=== PATIENT | male | born 1940 | race Hispanic/Latino ===

== ENCOUNTER 2018-10-29 05:05 | Observation (INO) | payer MEDICARE ==
[2018-10-28 11:12] LABS: HEMATOCRIT 41.9 % (38.2-49.6); HEMOGLOBIN 13.5 g/dL (14.0-18.0)
[~2018-10-29] VITALS: Ht 157.5 cm; Wt 72.1 kg
[~2018-10-29 05:05] MED LIST: ACETAMINOPHEN325 M1 PO; AMLODIPINE BESYL5 MG PO; BENICAR HCT 401 EACH PO; LORTAB 7.51 EA PO; Z.0.ASPIRIN325 MG PO; Z.0.LEVOTHYROXINE25 PO; Z.1.DIOVAN HCT 3201 PO
[2018-10-29] MEDS ORDERED: CELECOXIB 200 MG CAP ONE (06:42)
[2018-10-29] MEDS ORDERED: VANCOMYCIN HCL 1,000 MG ONE (06:42)
[2018-10-29] MEDS ORDERED: SODIUM CHLORIDE 0.9% 500ML 500 ML ONE (06:42)
[2018-10-29] MEDS ORDERED: DEXAMETHASONE SOD PHOS 10 MG/1 ML VIAL ONE (06:42)
[2018-10-29] MEDS ORDERED: CEFAZOLIN SOD 1 GM/NS 50ML 100 ML IV ONE (06:43)
[2018-10-29] MEDS ORDERED: GABAPENTIN 300 MG CAP ONE (06:43)
[2018-10-29] MEDS ORDERED: BACITRACIN 50,000 UNIT VIAL ONE (06:43)
[2018-10-29] MEDS ORDERED: TRANEXAMIC ACID 1,000 MG/10 ML ML ONE (06:43)
[2018-10-29] MEDS ORDERED: ROPIVACAINE 246.25 MG, EPINEPHRINE HCL 1:1000 1ML 0.5 MG, CLONIDINE HCL 0.08 MG, KETORO... INJ ONE ×5 (08:30)
[2018-10-29] MEDS ORDERED: CELECOXIB 100 MG CAP PO SCH (09:00)
[2018-10-29] MEDS ORDERED: ONDANSETRON HCL INJ 2MG/ML 2ML 2 MG/ML VIAL IV PRN (09:00)
[2018-10-29] MEDS ORDERED: DIPHENHYDRAMINE HCL INJ 50 MG/ML VIAL IM/IV PRN (09:00)
[2018-10-29] MEDS ORDERED: HYDROCODONE/APAP 5MG-325MG TAB PO PRN (09:00)
[2018-10-29] MEDS ORDERED: DOCUSATE SODIUM 100 MG CAP PO PRN (09:00)
[2018-10-29] MEDS ORDERED: ACETAMINOPHEN 650 MG SUPP PR PRN (09:00)
[2018-10-29] MEDS ORDERED: PROMETHAZINE HCL (IM) 25 MG/ML VIAL IM PRN (09:00)
[2018-10-29] MEDS ORDERED: KETOROLAC TROMETHAMINE 30 MG/ML VIAL IV PRN (09:00)
[2018-10-29] MEDS ORDERED: HYDROCODONE/APAP 7.5MG-325MG 1 EA TAB PO PRN (09:00)
--- NOTE | 2018-10-29 09:40 | Diagnostic Imaging Report ---
EXAM: KNEE LEFT 1-2 VIEWS DATE: 10/29/2018 8:52 AM INDICATION: Postop COMPARISON: None FINDINGS: There are postsurgical changes from recent left knee arthroplasty. Hardware appears intact and in anatomic alignment. There is no evidence for acute fracture or dislocation. No focal lytic or blastic abnormalities are identified. Soft tissue gas is noted, likely relating to the recent surgical procedure. Overlying skin tabitha noted. No radiopaque foreign body is appreciated. IMPRESSION: Expected post surgical changes from recent left knee arthroplasty. Signed by: Dr. Yon Branham MD on 10/29/2018 9:36 AM
--- NOTE | 2018-10-29 11:45 | NUR ---
PT ARRIVED TO ROOM RESP EVEN AND UNLABORED AT THIS TIME NO DISTRESS NOTED AT THIS TIME, PT HAS NO C/O PAIN, PT ABLE TO MAKE NEEDS KNOWN, LEFT LEG WRAPPED IN RAYSA WRAP, CLEAN DRY AND INTACT, PT ORIENTED TO ROOM AND CALL LIGHT, BED IN LOWEST POSITION, BED RAILS UP X2.
[2018-10-29] MEDS: ACETAMINOPHEN 1000 MG/100 ML IV SCH ×2 (12:00→18:28)
[2018-10-29 12:08] VITALS: BP 116/58
[2018-10-29 12:17] VITALS: BP 116/58
--- NOTE | 2018-10-29 13:14 | Operative Report ---
DATE OF PROCEDURE: 10/29/2018 SURGEON: Luis Alberto Ames MD DIRECTOR WEB: Davin Turpin, Certified PA. PREOPERATIVE DIAGNOSIS: Osteoarthritis left knee with retained hardware. POSTOPERATIVE DIAGNOSIS: Osteoarthritis left knee with retained hardware. PROCEDURE: Left total knee arthroplasty * added complexity due to previously operated knee. INDICATIONS: The patient is an 78-year-old [place] male, who has end-stage arthritis of his left knee. He is status post a high tibial osteotomy years ago. He has had progressive pain with ambulation. The treatment options have been discussed. He has been through a right knee replacement and he is happy with his progress and outcome. He would now like to proceed with a left total knee replacement. The risks and benefits were explained. The possibility of hardware removal was explained. He stated he understood and wished to proceed. PROCEDURE IN DETAIL: The patient was brought to the operating room and placed under general anesthetic. He received prophylactic antibiotics, a regional block, and tranexamic acid in the holding area. His left lower extremity was prepped and draped in a sterile manner. A preoperative time-out was performed. The extremity was exsanguinated and a proximal tourniquet was inflated to 300 mmHg. An anterior incision cheat was made. The incision was cheated to the lateral aspect due to the previous high tibial osteotomy incision. A medial parapatellar arthrotomy was performed. Clear synovial fluid was removed from the joint. Abundant synovitis was encountered. Soft tissue releases were carefully performed to bring the knee up into flexion with the patella everted. Complete loss of articular cartilage down to polished subchondral bone was noted in the medial compartment. Meniscal remnants and marginal osteophytes were removed. The knee was chronically ACL deficient. An extramedullary cutting guide was used to resect the tip of proximal tibia. The cut was referenced off the lateral compartment. A [employer] knee system was used throughout the case. The tibial base plate was noted to be a size number 5. We impacted the central fin punch. I could just see one of the spikes of the lateral staple after impacting the tibial punch. I palpated the proximal lateral aspect of the tibia. The previous tibial staple was covered in bone. I felt that the risk of iatrogenic fracture and unnecessary destruction of the soft tissues did not warrant removing the staple, considering that the tibial base plate could be completely seated. Attention was then directed towards the distal femur. An intramedullary cutting guide was used to resect the distal femur in 6 degrees of valgus and rotation, referencing off a combination of landmarks including Whitesides line, the epicondylar axis and the posterior condyles. The femoral component was also a size number 5. A trial reduction was performed. A 9 mm ultracongruent tibial insert provided appropriate soft tissue balancing. Attention was directed towards the patella. This was resurfaced with a 32 mm x 7.5 mm patellar button. The thickness was checked before and after resurfacing and it was right around 23 mm. Patellar tracking was noted to be concentric. The trial implants were then all removed. A 100 mL premixed pericapsular REINALDO injection was placed into the surrounding soft tissue. The knee was thoroughly irrigated with a shower tip pulsatile lavage. All of the bone cuts had been irrigated with a diluted spray mixture of polymyxin and vancomycin spray. The components were cemented into place using a single mix of Palacos cement preloaded with antibiotics. Care was taken to remove all extravasated cement. The wound was further irrigated while the cement cured. The arthrotomy was then closed after sprinkling 500 mg of vancomycin powder into the joint. The knee was put through flexion and extension to ensure a secure closure of the arthrotomy. The skin was carefully closed with subcuticular Vicryl and tabitha. A sterile bandage was applied. The patient was extubated and transported to the recovery room in stable condition. Luis Alberto Ames MD DR/YOLA /[id number]
[2018-10-29] MEDS: CEFAZOLIN SOD 1 GM/NS 50ML 50 ML IV SCH ×2 (14:00→22:04)
--- NOTE | 2018-10-29 14:10 | NUR ---
Visit made by the Spiritual Care Department Pastoral Visitor, Brenda Culver. PV provided pastoral presence, prayer, hospitality, and supportive listening. Pastoral Visitor informed pt/family of the scope of [facility] and availability. MESFIN IYER Vascular Radiologist Spiritual Care Department O: [phone] Pager: [phone] ([phone] number calling from)
--- NOTE | 2018-10-29 15:08 | NUR ---
DR APARICIO OFFICE PREARRANGED FOLLOWING DISCHARGE PLAN OF: HOME HEALTH WITH HOME CARE PROVIDERS CONFIRMED WITH YADY JESSIE [phone] SPOKE WITH DAUGHTER ALONZO MCCLAIN [phone] WHOM STATES PT HAS WALKER WITH WHEELS AND 3 IN 1 FROM LAST SURGERY STILL AND IS DECLINING, CALLED AND SPOKE WITH ANÍBAL AT [facility] [employer] [phone] AND LET KNOW SHE ALREADY HAS, DR DAVISON DC THE CPM HERE AT HOSPITAL, EMAILED DR DAVISON OFFICE TO DETERMINE IF WANTS CANCELLED AT HOME, NOTIFIED ANÍBAL OF THE DC HERE SHE WILL CALL DAUGHTER TO DETERMINE IF THE CPM IS NEEDED AT HOME, CURRENTLY PT HAS AN IMMOBILIZER. Addendum: 10/29/18 at 1519 by Jennifer Perkins CM ENTERED IN ERROR WRONG PT
--- NOTE | 2018-10-29 15:20 | NUR ---
DR APARICIO OFFICE PREARRANGED FOLLOWING DISCHARGE PLAN OF: HOME HEALTH WITH [facility] CONFIRMED WITH ANIQUIA [phone] SHE DID NOT HAVE ORDERS SO FAXED TO [phone], SPOKE WITH HER TO CONFIRM PATIENT ORDER, RECEIPT OF DEMOGRAPHICS AND DAUGHTERS CONTACT INFORMATION. KARENA JAVED [phone] DME 3 IN ONE COMMODE AND CPM. PROVIDED BY [email or web address] [phone] ISHAN. I PROVIDED ROLLING WALKER WITH WHEELS, OBTAINED SIGNATURES AND JESS WITH ORDER, FACESHEET AND GREEN SHEET TO PACU
[2018-10-29] MEDS: ASPIRIN 325 MG TAB PO SCH (16:53)
[2018-10-29] MEDS: CELECOXIB 200 MG CAP PO SCH (16:53)
[2018-10-29] MEDS: ACETAMINOPHEN 325 MG TAB PO SCH (16:54)
[2018-10-29 17:05] VITALS: BP 111/56
[2018-10-29] MEDS: CALCIUM CARBONATE 500 MG CHEWABLE TABS PO PRN (17:36)
[2018-10-29] MEDS: SODIUM CHLORIDE 0.9% 1000ML 1,000 ML IV SCH (18:15)
[2018-10-29] MEDS ORDERED: ROPIVACAINE 0.5% 5 MG/ML 30 ML SDV ONE (18:21)
[2018-10-29] MEDS ORDERED: FENTANYL CITRATE/PF 100MCG/2 ML INJ ONE (18:30)
--- NOTE | 2018-10-29 19:12 | NUR ---
WALKING ROUNDS PERFORMED, RECEIVED PT LAYING SEMI FOWLERS IN BED, AAOX3, RR EVEN AND NON-LABORED, ON ROOM AIR. NO S/SX OF DISTRESS NOTED. (L) LEG WRAPPED IN RAYSA WRAP. LEFT PT LAYING SEMI FOWLERS IN BED, BED IN LOW LOCKED POSITION, SIDE RAILS UPX2, CALL LIGHT AND PHONE WITHIN REACH.
[2018-10-29] MEDS ORDERED: ONDANSETRON HCL INJ 2MG/ML 2ML 2 MG/ML VIAL ONE (19:14)
[2018-10-29] MEDS ORDERED: LIDOCAINE HCL 2% LOCAL INJ 5 ML SDV VIAL INJ ONE (19:14)
[2018-10-29] MEDS ORDERED: PROPOFOL IV EMULSION 10 MG/ML 20 ML VIAL ONE (19:14)
[2018-10-29] MEDS ORDERED: EPHEDRINE SULFATE INJ 50 MG/10 ML SYR ONE (19:14)
[2018-10-29] MEDS ORDERED: ACETAMINOPHEN 1000 MG/100 ML IV ONE (19:14)
[2018-10-29] MEDS ORDERED: GLYCOPYRROLATE INJ 1MG/ 5 ML SYR ONE (19:14)
[2018-10-29] MEDS ORDERED: SEVOFLURANE INHAL SOLN 250 ML PEN BTL ONE (19:14)
--- NOTE | 2018-10-29 19:15 | NUR ---
report given to oncoming nurse, pt stable.
[2018-10-29 20:00] VITALS: BP 111/60
[2018-10-29] MEDS ORDERED: ZOLPIDEM TARTRATE 5 MG TAB PO PRN (21:00)
[2018-10-29 21:46] VITALS: BP 111/60
[2018-10-30] VITALS: BP 113/58
[2018-10-30] MEDS: CALCIUM CARBONATE 500 MG CHEWABLE TABS PO PRN (00:10)
[2018-10-30] MEDS: ACETAMINOPHEN 1000 MG/100 ML IV SCH ×2 (00:10→05:25)
[2018-10-30 04:00] VITALS: BP 112/59
[2018-10-30] MEDS: SODIUM CHLORIDE 0.9% 1000ML 1,000 ML IV SCH (04:52)
[2018-10-30 05:24] LABS: HEMATOCRIT 32.9 % (38.2-49.6); HEMOGLOBIN 10.8 g/dL (14.0-18.0)
--- NOTE | 2018-10-30 05:29 | Consultation ---
DATE OF CONSULTATION: REASON FOR CONSULTATION: Postop medical management. HISTORY OF PRESENT ILLNESS: The patient is an 78-year-old male, status post left total knee arthroplasty for end-stage osteoarthritis. He is doing very well postoperatively with minimal pain in the left knee. Denies any fevers, chills, nausea, vomiting, headache, shortness of breath, or dizziness on review of systems. PAST MEDICAL HISTORY: Hypertension and hypothyroidism. MEDICATIONS: See MAR. ALLERGIES: NONE. SOCIAL HISTORY: Nonsmoker, nondrinker. FAMILY HISTORY: Noncontributory. PHYSICAL EXAMINATION: VITAL SIGNS: Temperature is 98.5, pulse 52, blood pressure 130/58, and sats 96% on room air. GENERAL: He is in no apparent distress. NECK: Supple. LUNGS: Clear to auscultation bilaterally. CARDIOVASCULAR: Regular rate and rhythm. ABDOMEN: Good bowel sounds. Soft, nontender. EXTREMITIES: No clubbing or cyanosis. Left knee is bandaged with no seepage. NEUROLOGICAL: Nonfocal. ASSESSMENT AND PLAN: 1. Left knee pain. Continue with postoperative care and physical therapy. 2. Anemia. Check a CBC. 3. Hypertension. Continue with his home medication and monitor his blood pressure. 4. Hypothyroidism. Continue with his home medications. Please see hospital chart for full details. MD JC Thomas/YOLA /[id number]
[2018-10-30] MEDS: CEFAZOLIN SOD 1 GM/NS 50ML 50 ML IV SCH (05:42)
--- NOTE | 2018-10-30 05:43 | NUR ---
REMOVED RAYSA WRAP FROM (L) LEG, AQUACEL DRESSING IN PLACE COVERING (L) ANTERIOR KNEE INCISION, DRESSING IS CDI. APPLIED LARGE MARCIA HOSE TO (L) LEG.
[2018-10-30] MEDS ORDERED: LEVOTHYROXINE SODIUM 25 MCG TABLET PO SCH (06:00)
--- NOTE | 2018-10-30 07:05 | NUR ---
PT RESTING IN BED AA0X3 PT IS NEPALI SPEAKING IS ON CPM MACHINE AT THIS TIME TOLERATING WELL LEFT KNEE DRESSING IS CLEAN AND DRY BILATERAL STOCKINGS PRESENT AND FOOT PUMPS IV IS DRY AND INTACT WILL CONTINUE TO MONITOR PT CLOSELY SIDE RAILSX2, BED WHEELS LOCKED, CALL LIGHT IS WITHIN EASY REACH, INSTRUCTED TO CALL FOR ASSISTANCE IF NEEDED
[2018-10-30 07:47] VITALS: BP 119/57
[2018-10-30] MEDS: ASPIRIN 325 MG TAB PO SCH (08:35)
[2018-10-30 08:36] VITALS: BP 119/57
[2018-10-30] MEDS: CELECOXIB 200 MG CAP PO SCH (08:36)
[2018-10-30] MEDS: ACETAMINOPHEN 325 MG TAB PO SCH (08:36)
[2018-10-30] MEDS ORDERED: HYDROCHLOROTHIAZIDE 25 MG TAB PO SCH (09:00)
[2018-10-30] MEDS ORDERED: OLMESARTAN 20 MG TAB PO SCH (09:00)
[2018-10-30] MEDS ORDERED: ONDANSETRON HCL 4 MG ORAL DISINTEGRATING TAB PO PRN (09:00)
[2018-10-30] MEDS ORDERED: ACETAMINOPHEN 1000 MG/100 ML IV PRN (09:00)
[2018-10-30] MEDS ORDERED: AMLODIPINE BESYLATE 5 MG TAB PO SCH (09:00)
[2018-10-30 11:47] VITALS: BP 125/58
--- NOTE | 2018-10-30 12:20 | NUR ---
DISCHARGE INSTRUCTIONS PT VERBALIZED UNDERSTANDING IV DC PRESSURE DRESSING APPLIED AND TAPED PT IS READY FOR DC AT THIS TIME
--- NOTE | 2018-10-30 12:31 | NUR ---
PT OFF UNIT TO HOME AT THIS TIME
== END 2018-10-30 12:31 | disposition home health service (06) ==
LOC: OR 05:05 → PACU V 08:54 → MED/SURG 11:30
PROVIDERS: ADMIT Specialist; ATTEND Specialist
DX: M17.0 Bilateral primary osteoarthritis of knee (principal); I10 Essential (primary) hypertension; E03.9 Hypothyroidism, unspecified; Z96.651 Presence of right artificial knee joint
CPT/HCPCS: 20680; 27447; 36415 ×2; 73560; 85014 ×2; 85018 ×2; 86850; 86900; 86920; 97116 ×2; 97139; 97161; 97530 ×2; C1713 ×3; G0378 ×2; J0131 ×2; J0171; J0690 ×2; J1100; J1885; J2001; J2405; J2704; J2795; J3010; J3370; J3490; J7040

== ENCOUNTER 2021-08-26 09:53 | Inpatient (IN) | payer MEDICARE ==
[~2021-08-26] VITALS: Ht 162.6 cm; Wt 70.8 kg
[2021-08-26 10:42] LABS: BASOPHILS # (AUTO) 0.1 (0.0-0.1); BASOPHILS % 0.6 % (0.0-1.0); EOSINOPHILS # (AUTO) 0.2 (0.0-0.4); HEMATOCRIT 36.1 % (38.2-49.6); LYMPHOCYTES # (AUTO) 0.8 (1.0-3.2); LYMPHOCYTES % 9.3 % (18.0-39.1); MEAN CORPUSCULAR HEMOGLOBIN 30.3 pg (28-32); MEAN CORPUSCULAR HGB CONC 33.2 g/dL (31-35); MEAN CORPUSCULAR VOLUME 91.2 fL (81-99); MONOCYTES # (AUTO) 0.5 (0.2-0.8); MONOCYTES % 6.2 % (4.4-11.3); NEUTROPHILS # (AUTO) 6.5 (2.1-6.9); NEUTROPHILS % 80.3 % (38.7-80.0); PLATELET COUNT 327 x10e3/uL (140-360); RED BLOOD COUNT 3.96 x10e6/uL (4.3-5.7); RED CELL DISTRIBUTION WIDTH 12.6 % (11.7-14.4)
[2021-08-26] MEDS ORDERED: MECLIZINE HCL 12.5 MG TAB PO ONE (10:45)
[2021-08-26 10:53] LABS: INR 0.95; PROTHROMBIN TIME 13.5 seconds (11.9-14.5)
[2021-08-26 10:54] LABS: PARTIAL THROMBOPLASTIN TIME 26.8 seconds (23.8-35.5)
[2021-08-26] MEDS: SODIUM CHLORIDE FLUSH 10 ML SYR IV PRN ×2 (11:01→13:10)
[2021-08-26 11:03] LABS: ALANINE AMINOTRANSFERASE 11 IU/L (0-55); ALBUMIN 3.3 g/dL (3.5-5.0); ALKALINE PHOSPHATASE 85 IU/L (40-150); ANION GAP 11.8 mmol/L (8-16); BLOOD UREA NITROGEN 17 mg/dL (7-26); BUN/CREATININE RATIO 13 (6-25); CALCIUM 8.7 mg/dL (8.4-10.2); CARBON DIOXIDE 26 mmol/L (22-29); CHLORIDE 99 mmol/L (98-107); CREATININE, SERUM 1.36 mg/dL (0.72-1.25); GLUCOSE 135 mg/dL (74-118); POTASSIUM 3.8 mmol/L (3.5-5.1); SODIUM 133 mmol/L (136-145)
[2021-08-26 11:54] LABS: CLARITY,URINE CLOUDY (CLEAR); COLOR,URINE YELLOW (YELLOW); KETONES,URINE NEGATIVE (NEGATIVE); LEUKOCYTE ESTERASE ,URINE MODERATE (NEGATIVE); NITRITE,URINE POSITIVE (NEGATIVE); PROTEIN,URINE DIPSTICK 1+ (NEGATIVE); URINE UROBILINOGEN 0.2 mg/dL (0.2 - 1)
[2021-08-26 12:09] LABS: BACTERIA,URINE MANY /HPF; EPITHELIAL CELLS,URINE RARE /LPF; RBC,URINE 0-5 /HPF (0-5); WBC,URINE (MAN) >50 /HPF (0-5)
[2021-08-26] MEDS ORDERED: ONDANSETRON HCL INJ 2MG/ML 2ML 2 MG/ML VIAL IV PRN (13:00)
[2021-08-26 13:59] VITALS: BP 150/98
[2021-08-26 14:00] VITALS: BP 150/98
[2021-08-26 15:43] VITALS: BP 124/77
[2021-08-26] MEDS ORDERED: NEURONTIN300 MG PO (17:50)
[2021-08-26] MEDS ORDERED: NAPROXEN250 MG PO (17:50)
[2021-08-26] MEDS ORDERED: ULTRAM50 MG PO (17:50)
[2021-08-26 20:00] VITALS: BP 127/77
[2021-08-26] MEDS ORDERED: DOCUSATE SODIUM 100 MG CAP PO ONE (20:30)
[2021-08-26] MEDS ORDERED: TRAMADOL HCL 50 MG TAB PO ONE (20:30)
[2021-08-26] MEDS: GABAPENTIN 300 MG CAP PO SCH (20:36)
[2021-08-26] MEDS ORDERED: METOPROLOL TARTRATE 25 MG TAB PO SCH (21:00)
[2021-08-27] VITALS (8 sets, daily range): BP systolic 101–148; BP diastolic 51–70
[2021-08-27] MEDS: LEVOTHYROXINE SODIUM 25 MCG TABLET PO SCH (05:12)
[2021-08-27 06:31] LABS: BASOPHILS # (AUTO) 0.1 (0.0-0.1); BASOPHILS % 0.9 % (0.0-1.0); EOSINOPHILS # (AUTO) 0.3 (0.0-0.4); EOSINOPHILS % 4.1 % (0.0-6.0); HEMATOCRIT 35.1 % (38.2-49.6); HEMOGLOBIN 11.8 g/dL (14.0-18.0); LYMPHOCYTES # (AUTO) 1.1 (1.0-3.2); LYMPHOCYTES % 14.9 % (18.0-39.1); MEAN CORPUSCULAR HEMOGLOBIN 30.2 pg (28-32); MEAN CORPUSCULAR HGB CONC 33.6 g/dL (31-35); MEAN CORPUSCULAR VOLUME 89.8 fL (81-99); MONOCYTES # (AUTO) 0.6 (0.2-0.8); MONOCYTES % 7.6 % (4.4-11.3); NEUTROPHILS # (AUTO) 5.5 (2.1-6.9); NEUTROPHILS % 71.6 % (38.7-80.0); PLATELET COUNT 345 x10e3/uL (140-360); RED BLOOD COUNT 3.91 x10e6/uL (4.3-5.7); RED CELL DISTRIBUTION WIDTH 12.9 % (11.7-14.4)
[2021-08-27 06:53] LABS: ANION GAP 13.8 mmol/L (8-16); CALCIUM 8.6 mg/dL (8.4-10.2); CREATININE, SERUM 1.14 mg/dL (0.72-1.25); POTASSIUM 3.8 mmol/L (3.5-5.1)
[2021-08-27] MEDS ORDERED: ACETAMINOPHEN 325 MG TAB PO PRN (09:00)
[2021-08-27] MEDS: GABAPENTIN 300 MG CAP PO SCH ×3 (09:00→21:00)
[2021-08-27] MEDS: TRAMADOL HCL 50 MG TAB PO SCH ×2 (09:30→17:51)
[2021-08-27] MEDS: DOCUSATE SODIUM 100 MG CAP PO SCH ×2 (09:30→17:50)
[2021-08-27] MEDS: AMLODIPINE BESYLATE 5 MG TAB PO SCH (09:31)
[2021-08-27] MEDS: ASPIRIN 81 MG CHEW TAB PO SCH (09:31)
[2021-08-27] MEDS ORDERED: MECLIZINE HCL 12.5 MG TAB PO PRN (12:15)
[2021-08-27] MEDS: APIXABAN 5 MG TABLET PO SCH (17:50)
[2021-08-28] VITALS (8 sets, daily range): BP systolic 125–167; BP diastolic 65–80
[2021-08-28] MEDS: LEVOTHYROXINE SODIUM 25 MCG TABLET PO SCH (05:30)
[2021-08-28] MEDS: GABAPENTIN 300 MG CAP PO SCH ×3 (07:58→21:00)
[2021-08-28] MEDS: ASPIRIN 81 MG CHEW TAB PO SCH (09:00)
[2021-08-28] MEDS: APIXABAN 5 MG TABLET PO SCH ×2 (09:00→17:00)
[2021-08-28] MEDS: DOCUSATE SODIUM 100 MG CAP PO SCH ×2 (09:48→17:29)
[2021-08-28] MEDS: AMLODIPINE BESYLATE 5 MG TAB PO SCH (09:48)
[2021-08-28] MEDS: TRAMADOL HCL 50 MG TAB PO SCH ×2 (09:49→17:29)
[2021-08-29] VITALS (8 sets, daily range): BP systolic 118–149; BP diastolic 62–84
[2021-08-29] MEDS: LEVOTHYROXINE SODIUM 25 MCG TABLET PO SCH (05:57)
[2021-08-29] MEDS ORDERED: GENTAMICIN SULFATE 40 MG/ML 2 ML VIAL ONE ×2 (06:52)
[2021-08-29] MEDS ORDERED: FENTANYL CITRATE/PF 100MCG/2 ML INJ ONE (06:52)
[2021-08-29] MEDS ORDERED: MIDAZOLAM HCL 2 MG/2 ML VIAL ONE ×2 (06:52→07:45)
[2021-08-29] MEDS ORDERED: Vancomycin IV 1 GM VIAL ONE ×2 (06:52→07:20)
[2021-08-29] MEDS ORDERED: SODIUM CHLORIDE 0.9% 1000ML 2,000 ML ONE (06:53)
[2021-08-29] MEDS ORDERED: LIDOCAINE HCL 1% LOCAL INJ 20 ML VIAL ONE (06:53)
[2021-08-29] MEDS ORDERED: SODIUM CHLORIDE 0.9% 500ML 500 ML ONE (06:58)
[2021-08-29] MEDS ORDERED: SODIUM CHLORIDE 0.9% 250ML 250 ML ONE (07:20)
[2021-08-29] MEDS: APIXABAN 5 MG TABLET PO SCH (09:00)
[2021-08-29] MEDS: ASPIRIN 81 MG CHEW TAB PO SCH (09:00)
[2021-08-29] MEDS: GABAPENTIN 300 MG CAP PO SCH ×3 (11:03→21:00)
[2021-08-29] MEDS: AMLODIPINE BESYLATE 5 MG TAB PO SCH (11:03)
[2021-08-29] MEDS: DOCUSATE SODIUM 100 MG CAP PO SCH ×2 (11:03→17:00)
[2021-08-29] MEDS: TRAMADOL HCL 50 MG TAB PO SCH ×2 (11:10→17:00)
[2021-08-30 00:57] VITALS: BP 146/66
[2021-08-30 04:00] VITALS: BP 126/68
[2021-08-30] MEDS: LEVOTHYROXINE SODIUM 25 MCG TABLET PO SCH (05:57)
[2021-08-30 07:59] VITALS: BP 144/68
[2021-08-30] MEDS: DOCUSATE SODIUM 100 MG CAP PO SCH (09:06)
[2021-08-30] MEDS: ASPIRIN 81 MG CHEW TAB PO SCH (09:06)
[2021-08-30] MEDS: AMLODIPINE BESYLATE 5 MG TAB PO SCH (09:06)
[2021-08-30 09:08] VITALS: BP 144/68
[2021-08-30] MEDS: GABAPENTIN 300 MG CAP PO SCH (09:16)
[2021-08-30] MEDS: TRAMADOL HCL 50 MG TAB PO SCH (09:17)
[2021-08-30 11:38] VITALS: BP 136/65
[2021-08-30] MEDS ORDERED: ELIQUIS5 MG PO (15:08)
[2021-08-30] MEDS ORDERED: ONDANSETRON HCL 4 MG ORAL DISINTEGRATING TAB PO PRN (15:45)
== END 2021-08-30 17:14 | disposition home or self-care (01) | DRG 243 ==
LOC: ER 10:22 → ERHOLD 12:54 → MED/SURG2 13:45
PROVIDERS: ADMIT Internal Medicine; ATTEND Internal Medicine
PROC: 0JH606Z Insertion of Pacemaker, Dual Chamber into Chest Subcutaneous Tissue and Fascia, Open Approach (ICD-10-PCS; principal; 2021-08-29)
PROC: 02H63JZ Insertion of Pacemaker Lead into Right Atrium, Percutaneous Approach (ICD-10-PCS; 2021-08-29)
PROC: 02HK3JZ Insertion of Pacemaker Lead into Right Ventricle, Percutaneous Approach (ICD-10-PCS; 2021-08-29)
DX: I49.5 Sick sinus syndrome (principal); N17.9 Acute kidney failure, unspecified; N39.0 Urinary tract infection, site not specified; E03.9 Hypothyroidism, unspecified; I10 Essential (primary) hypertension; G62.9 Polyneuropathy, unspecified; Z99.89 Dependence on other enabling machines and devices; I35.0 Nonrheumatic aortic (valve) stenosis; I48.0 Paroxysmal atrial fibrillation; Z96.653 Presence of artificial knee joint, bilateral; M17.0 Bilateral primary osteoarthritis of knee; Z20.822 Contact with and (suspected) exposure to COVID-19
CPT/HCPCS: 33208; 36415; 70450; 71045; 71046; 80048; 80053; 81001; 83880; 84484; 85025; 85610; 85730; 93005; 93306; 94760; 94799; 97139; 99152; 99153; 99251; 99284; C1785; C1898; J0690; J0696; J1580; J2001; J2250; J3010; J3370; J7030; J7040; J7050